=== PATIENT | male | born 1955 | race Caucasian/White ===

== ENCOUNTER 2024-05-27 13:10 | Emergency (ER) | payer OTHER, SELFPAY ==
[2024-05-27 13:18] VITALS: BP 122/76
--- NOTE | 2024-05-27 15:33 | ED.GENMED ---
History of Present Illness
General
Chief Complaint: Cold/Flu/URI Symptoms
Source: patient
Exam Limitations: none
Time Seen by Provider: 05/27/24 15:07
Nursing documentation reviewed up to this point in time: agreed with
History of Present Illness
History of Present Illness:
68 y/o M with h/o HLD, NIDDM,
here with fatigue x 10 days-
started with sore throat, cough, runny nose, fever, then those sypmtoms mostly resolved and he started havin gmore vomiting/diarrhea/fatigue symptoms
he has vomited a few times total, not had significant diarrhea, but some; he has lack of appetite, nauesa, and has vomited after eating sometimes
he called his PCP who told him to come in
he has been sleeping excessively
never took a covid test for this
no cp, sob, signfiicant abd pain, vomiting blood, black stools
says he does have some urinary changes, dec urination but attributed that to lack of oral intake; he says he feels the urge to go sometimes and only a little urine comes
he has not had any abdomianl pain, just has had vomiting and diarrhea nad sometimes feels nauseated
Review of Systems
Review of Systems
Allergies reviewed?: Yes
All Other Systems: Not applicable
Phy Exam
Physical Exam
Physical Exam:
GENERAL: Alert , in no apparent distress, looks mildly wiped out; but no distress;
EYE: pupils equal and reactive
NECK: Supple
ENT: b/l TM s clear, pharynx minimally erythematous but no tonsillar hypertrophy or exudates; mild dry mouth
CARDIAC: Regular rate and rhythm, no edema
LUNGS: Clear breath sounds bilaterally, no acute respiratory distress, no wheezes/rales/rhonchi, occ cough
ABDOMEN: Soft, without focal tenderness, no r/g, no cvat, normal bowel sounds
nondistended, nontendner
NEUROLOGICAL: Alert and oriented, no focal neuro deficits
SKIN: Warm and dry, skin intact.
MUSCULOSKELETAL: No edema, well perfused.
PSYCH: Normal and appropriate interaction.
Course
Orders/Labs/Results
Orders:
Orders
05/27/24 15:30
0.9% Sodium Chloride 1000 ml [Nss] 1,000 ml IV BOLUS
05/27/24 15:31
CR Chest - 2 Views Urgent
Comment:
Reason For Exam: cough, fever, fatigue
05/27/24 15:32
Ondansetron Injectable [Zofran] 4 mg IV NOW STA
05/27/24 15:39
COVID-19 Antigen Urgent
Source: Nasal Swab
Complete Blood Count/With Diff Urgent
Comprehensive Metabolic Panel Urgent
Lipase Urgent
Influenza A+B Rapid Molecular Urgent
BRAXTON Source: Nasal Swab
Specimen Description:
05/27/24 17:02
Urinalysis Reflex To Culture Urgent
Date Specimen was Collected: 05/27/24
Time Specimen was Collected: 17:01
Abnormal Lab Results
05/27/24 05/27/24
15:39 17:02
BUN 31 H mg/dl
(9-20)
Glucose 148 H mg/dl
(70-99)
Urine Bilirubin 1+ A
(Negative)
05/27/24 15:39
05/27/24 15:39
Vital Signs
Initial and Last Documented VS:
Initial Vital Signs
Temp Pulse Resp BP Pulse Ox
97.9 F 68 18 122/76 99
05/27/24 13:18 05/27/24 13:18 05/27/24 13:18 05/27/24 13:18 05/27/24 13:18
Last Documented Vital Signs
Temp Pulse Resp BP Pulse Ox
97.9 F 75 19 129/84 99
05/27/24 13:18 05/27/24 17:00 05/27/24 17:00 05/27/24 17:00 05/27/24 17:00
MDM/Problems Addressed
Differential Diagnosis Includes:
viral syndrome, pneumonia, covid, flu, dehydration, renal failure
MDM/Problems Addressed:
68 y/o M
h/o hld, dm
here with 10 days sypmtoms started as URI, fever 1 day, rhinorrhea, sore throat, cough
then progressed to some gi symptoms
more fatigue
cough is improving
no specific abd pain
vomits only occasionally
able to keep down some liquids; hasn't had appetite
occasional diarrhea
nontoxic appearing, mildly fatigued
mild MM dry
but onntender abdomen
clear lungs
labs reviewed, prerenally dry
given IVF
otherwise no signfiicant findigns
reassessed pt feels much better after IVF
torleated oral challenge and d/c hoome
i did mesage pt's primary just to be aware if sypmtoms are ongoign
suspect this is viral
*Critical Care Note
Total Time (30-74mins, 75-104mins- exclusive of procedures): Not Applicable
ED Attending Note
-
Portions of this chart may have been created with voice recognition software.� Occasional wrong word or��sound alike� substitutions may have occurred due to the inherent limitations of voice recognition software.
Discharge Plan
Departure
Patient Disposition: Home (Routine Discharge)
Date of Disposition: 05/27/24
Time of Disposition: 16:53
Patient with high blood pressure during this ER visit?: No
Discharge Problem:
Acute viral syndrome
Instructions: Viral Syndrome (DC)
Prescriptions:
New
ondansetron 4 mg tablet,disintegrating
4 mg PO Q8H PRN (Reason: nausea and vomiting) 2 Days Qty: 4 0RF
Referrals:
Shakeel Vallejo, [Family Provider] - Follow up in 2-3 days
Activity Restrictions/Additional Instructions:
WE ARE NOT ENTIRELY SURE THE CAUSE OF YOUR SYMPTOMS
BUT YOUR BLOOD WORK WAS REASSURING
THIS COULD BE A VIRAL INFECTION THAT HAS CAUSED YOU TO BE DEHDYRATED
WE GAVE YOU SOME FLUIDS
YOU CAN TRY ZOFRAN 4 MG EVERY 8 HOURS NEEDED FOR NAUESA/VOMITING IF YOU NEED TO
OTHERWISE YOU SHOULD KEEP STAYING HYDRATED WITH LIQUIDS AND ONLY EAT BLAND FOODS
RETURN FOR: WORSENING SYPMTOMS LIKE NEW FEVER, WORSE VOMITING, WORSE DIARRHEA/DEHYDRATION, ABDOMIANL PAIN, ETC
OTHERWISE SEE YOUR DOCTOR NEXT WEKE
Interventions
Interventions:
*Risk Screen - Suicide Last Done: 05/27/24 16:00
*General Assessment Last Done: 05/27/24 16:00
*Neglect/Abuse Screening Last Done: 05/27/24 16:00
*ED COVID-19 Vaccine History Last Done: 05/27/24 16:00
*Nursing Disposition Last Done: 05/27/24 17:27
ED- Pulmonary Assessment Last Done: 05/27/24 16:00
Discharge Date and Time
Discharge Date/Time: 05/27/24 17:28
Print Language: MACEDONIAN
[2024-05-27] MEDS: NSS 1000 IV (15:47)
[2024-05-27] MEDS: ZOFRAN 4 MG IV (15:48)
[2024-05-27 15:58] LABS: % Basophils 0.3 % (0-2); % Eosinophils 0.5 % (0-6); % Immature Granulocytes 0.2 % (0-0.5); % Lymphocytes 23.4 % (20.5-51.1); % Neutrophils 71.6 % (42.2-75.2); Absolute Lymphocytes 1.5 10^3/uL (1.2-3.4); Absolute Monocytes 0.3 10^3/uL (0.1-0.6); Absolute Neutrophils 4.6 10^3/uL (1.4-6.5); Hemoglobin 14.7 g/dL (13.0-18.0); Mean Corp Hgb Conc. 34.2 g/dL (33.0-37.0); Mean Corpuscular Hgb 29.7 pg (27.0-31.0); Mean Corpuscular Volume 86.9 fL (80.0-94.0); Mean Platelet Volume 9.3 fL (7.4-10.4); Nucleated Red Blood Cells % 0 % (-); Platelet Count 276 10^3/uL (130-400); Red Blood Cell Count 4.95 10^6/uL (4.70-6.10); Red Cell Dist. Width 12.4 % (11.5-14.5); White Blood Cell Count 6.4 10^3/uL (4.8-10.8)
[2024-05-27 16:15] LABS: ALT (SGPT) 15 U/L (0-50); AST (SGOT) 18 U/L (17-59); Albumin 4.3 g/dl (3.5-5.0); Alkaline Phosphatase 66 U/L (38-126); Blood Urea Nitrogen 31 mg/dl (9-20); Calcium 9.9 mg/dl (8.4-10.2); Carbon Dioxide 29 mmol/L (22-30); Chloride 100 mmol/L (98-107); Glucose 148 mg/dl (70-99); Lipase 46 U/L (23-300); Potassium 4.3 mmol/L (3.5-5.1); Sodium 140 mmol/L (135-145); Total Bilirubin 0.5 mg/dl (0.2-1.3); Total Protein 6.7 g/dl (6.3-8.2); eGFR > 60.00
[2024-05-27 16:27] VITALS: BP 132/65
[2024-05-27 16:28] LABS: COVID-19 Antigen Negative (Negative)
[2024-05-27 17:00] VITALS: BP 129/84
[2024-05-27 17:25] LABS: Urine Albumin Trace (Neg - Trace); Urine Bilirubin 1+ (Negative); Urine Character Clear (Clear); Urine Color Yellow; Urine Glucose Negative (Negative); Urine Ketone Negative (Negative); Urine Leukocyte Negative (Negative); Urine Nitrite Negative (Negative); Urine Occult Blood Negative (Negative); Urine Urobilinogen Negative (Neg - 1+)
== END 2024-05-27 17:28 | disposition home or self-care (01) ==
LOC: EMR 13:10
PROVIDERS: Physician Assistant; EMERGENCY PHYSICIAN Emergency Medicine; FAMILY PHYSICIAN Family Medicine
DX: B34.9 Viral infection, unspecified (principal); R19.7 Diarrhea, unspecified; R11.10 Vomiting, unspecified; Z11.52 Encounter for screening for COVID-19; E11.9 Type 2 diabetes mellitus without complications; E78.5 Hyperlipidemia, unspecified; Z79.84 Long term (current) use of oral hypoglycemic drugs
CPT/HCPCS: 99284; 96374; 96361; 71046; 80053; 81003; 83690; 85025; 87502; 87811

== ENCOUNTER → 2024-11-26 08:50 | Outpatient (REF) | payer OTHER, SELFPAY | LOC: HWRCS 08:50 | PROVIDERS: ATTENDING PHYSICIAN Family Medicine | DX: I35.1 Nonrheumatic aortic (valve) insufficiency (principal) | CPT/HCPCS: 93306 ==